=== PATIENT | male | born 1930 | race Caucasian/White ===

== ENCOUNTER → 2017-03-13 | Outpatient (CLI) | payer MEDICARE, OTHER ==
[~2017-03-13] MED LIST: "\\\"PREP SPRAY\\\"-TIN4 OZ"; CIPRO500 MG PO; COUMADIN ** IA3 MG PO; ENTRESTO 24 MG1 EACH PO; FEOSOL325 MG PO; FLAGYL500 MG PO; FLOMAX0.4 MG PO; JANUVIA50 MG PO; LASIX40 MG PO; MAG-OX-400(241400 MG PO; NEURONTIN100 MG PO; PROTONIX40 MG PO; VITAMIN D35000 UNI1 PO; ZYLOPRIM300 MG PO
== END | disposition disaster alternative care site (69) ==
LOC: LCNC 11:08
DX: Z95.2 Presence of prosthetic heart valve (principal)

== ENCOUNTER 2017-05-08 15:30 | Inpatient (IN) | payer MEDICARE, OTHER ==
[~2017-05-08] VITALS: Ht 165.6 cm; Wt 76.7 kg
--- NOTE | ~2017-05-08 | HP ---
PATIENT'S NAME: EDWIN [facility] AGE: 86 Y [address] ROOM: [address] [place], [place] [address] [place] [facility] [place]: [place]/2017 History & Physical DISCHARGE DATE: FAMILY PHYSICIAN: Darryl Ricardo MD ATTENDING PHYSICIAN: Natividad Neri DATE OF SERVICE: CHIEF COMPLAINT: Left-sided low back pain. HISTORY OF PRESENT ILLNESS: The patient is an 86-year-old male who presented to the clinic today with his . He reports he has been having low back pain for many years. It has been worse for the last 3-4 days. Describes it as moderate and nonradiating. No specific injury or event that precipitated it. While he was in the clinic, it was noted that he had difficulty getting up and down from the chair and was using a walker. His states that he had been more weak and unsteady in the last 3-4 days as well. He has had some occasional diarrhea. Reports a history of diverticulitis and had blood in his stool at that time. Denies any current blood in his stool. Denies any fevers, but admits he does have some chills. Denies any nausea or vomiting. Does admit to feeling weak and unsteady. In November, he had blood work done. His hemoglobin was low at 10.7, vitamin D 21, BUN 49, creatinine 2.09, GFR 32, and alkaline phosphatase 230. He is on Coumadin, which is managed by Dr. Finn. They report his INR was 4.2 on Thursday. His normal dose is 3 mg 4 days a week and 1.5 mg 3 days a week. They held his dose on Thursday, but otherwise told to resume his normal dose starting Thursday. He does have a history of x-ray of the lumbar spine in 2014 that showed significant arthritic changes and bony fusion at L4-L5. PAST MEDICAL HISTORY: 1. Anemia of chronic disease. 2. Aortic valve replacement. 3. Chronic ischemic heart disease. 4. CKD stage 3 to 4. 5. Gout. 6. Hyperlipidemia, prison use of anticoagulation. 7. Nocturnal hypoxemia, uses 2 L of oxygen per nasal cannula. 8. Paroxysmal atrial fibrillation. 9. 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 PATIENT'S NAME: EDWIN [facility] AGE: 86 Y [address] ROOM: [address] [place], [place] [address] [place] [facility] [place]: [place]/2017 History & Physical DISCHARGE DATE: FAMILY PHYSICIAN: Darryl Ricardo MD ATTENDING PHYSICIAN: Natividad Neri 10. 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 11. Vitamin D deficiency. PAST SURGICAL HISTORY: Bilateral cataract surgery, carpal tunnel release, cholecystectomy in 2006 with a history of gallstone pancreatitis, CABG in August 2004, hernia repair, pacemaker defibrillator in 2007 with an upgrade to BiV-ICD in February of 2008. MEDICATIONS: 1. Allopurinol 300 mg daily. 2. Entresto 24-26 one p.o. b.i.d. 3. Gabapentin 200 mg daily. 4. Januvia 50 mg at bedtime. 5. Magnesium oxide 400 mg 2 tablets daily. 6. Pantoprazole 40 mg b.i.d. 7. Tamsulosin 0.4 mg daily. 8. Vitamin D2 50,000 units twice a week. 9. Coumadin 3 mg 4 days a week and 1.5 mg 3 days a week. ALLERGIES: NONE. FAMILY HISTORY: Type 2 diabetes in his father and heart disease in his mother and sister. SOCIAL HISTORY: He lives at home with his , Kyleigh. He is retired. Nonsmoker. Rare alcohol use. REVIEW OF SYSTEMS: He admits to fatigue and chills. Denies fever. Denies chest pain. Denies shortness of breath or cough. He does admit to left lower quadrant abdominal pain. Denies nausea, vomiting, or blood in his stool. Denies any urinary symptoms. Does admit to weakness. Notes left-sided low back pain. Denies anxiety or depression. PHYSICAL EXAMINATION: VITAL SIGNS: Blood pressure 122/56, heart rate 63, respiratory rate 18, temperature 97.6, weight 172 pounds, height 5 feet 5 inches, O2 saturation 98% on room air. GENERAL: He is awake, alert, and oriented. No signs of distress. He did require one person assist, as well as use of his walker for ambulation. HEENT: Head is normocephalic. Eyes: Conjunctivae are clear. Ears: Both TMs are visualized and there is a small pustule on the inside of the left pinna that has some purulent drainage. Wound culture is obtained. The pinna PATIENT'S NAME: EDWIN [facility] AGE: 86 Y [address] ROOM: [address] [place], [place] [address] [place] [facility] [place]: [place]/2017 History & Physical DISCHARGE DATE: FAMILY PHYSICIAN: Darryl Ricardo MD ATTENDING PHYSICIAN: Natividad Neri itself has no redness, swelling, or signs of infection otherwise. Both TMs are visualized and normal in appearance. Nares are patent without rhinorrhea. Mucosa is within normal limits. No intranasal lesions noted. Mouth: Mucous membranes are moist. NECK: Supple. No lymphadenopathy. HEART: Regular rate, without murmur, he does have a click of an aortic valve noted. LUNGS: Clear to auscultation throughout. No crackles or wheezing. ABDOMEN: Soft, mildly tender to palpation in the left lower quadrant, normal tone. No guarding, no rebound tenderness. No masses palpated. No hepatosplenomegaly noted. MUSCULOSKELETAL: He is tender to palpation over the lumbar spinous processes. He is also tender over the left SI joint. No bruising, redness, or swelling noted. LABORATORY DATA: PT 38.3 with INR of 3.4. UA shows 30 mg/dL of protein and greater than 8 EU/dL of urobilinogen, 5-10 wbc's, and otherwise negative. Urine culture is pending. WBC elevated at 12.1 with hemoglobin 9.1, platelets 254, 88% segs. Sodium 137, potassium 5.2, chloride 108, bicarb 22, blood sugar 151, BUN 33, creatinine 1.82. GFR 37.7. ASSESSMENT: 1. Anemia. Hemoglobin was 10.7 in November and down to 9.1 today. In his chart, he has indicated both anemia of chronic disease and iron- deficiency anemia. He will be transfused 1 unit PRBC and premedicated with Tylenol and Benadryl. Transfusing due to his history of heart disease, chronic kidney disease, and his symptom of weakness. 2. Chronic kidney disease stage 3-4. His numbers today are stable with his GFR today, actually a bit higher than it was in November. 3. Chronic use of Coumadin. His normal dose is 3 mg 4 days a week and 1.5 mg 4 days a week. His INR was elevated at 4.2 on Thursday. His dose on Thursday was held and then he resumed his normal regimen. His INR today is within acceptable range of 3.4. 4. Left-sided low back pain. Hard to say if this is musculoskeletal or due to diverticulitis. 5. Left lower quadrant pain and elevated WBC. CT scan of the abdomen and pelvis done with oral contrast indicates diverticulitis. He has been started on IV Cipro and Flagyl. 6. Left ear pustule. Wound culture obtained in the clinic. No signs of surrounding cellulitis. 7. Elevated alkaline phosphatase. 215 today, but was 230 in November. 8. Hyperkalemia with potassium 5.2 in the clinic. EKG done on the floor. We will recheck potassium in the morning. He is not on any potassium replacement. He does have reduced kidney function, but it is actually a PATIENT'S NAME: EDWIN [facility] AGE: 86 Y [address] ROOM: [place] [address] [place] [facility] [place]: [place]/2017 History & Physical DISCHARGE DATE: FAMILY PHYSICIAN: Darryl Ricardo MD ATTENDING PHYSICIAN: Natividad Neri bit better today than his normal. We will monitor his potassium closely. MD LISA BARNES/modl /[id number] D: T: [id number] HISTORY & PHYSICAL
[~2017-05-08 15:30] MED LIST changes: -CIPRO500 MG PO; -ENTRESTO 24 MG1 EACH PO; -FEOSOL325 MG PO; -FLAGYL500 MG PO; -NEURONTIN100 MG PO
[2017-05-08] MEDS ORDERED: NEURONTIN100 MG PO (19:11)
[2017-05-08] MEDS ORDERED: ENTRESTO 24 MG1 EACH PO (19:12)
[2017-05-08 22:01] LABS: INR - (THERAPEUTIC) 2.87 (0.92-1.07); PROTIME 30.5 SECONDS (9.8-11.4)
--- NOTE | 2017-05-09 03:53 | NUR ---
VSS HYPERTENSIVE. AAOX3. AMBULATES WITH 1A WALKER. IV S/L TO LEFT WRIST GOOD BLOOD RETURN. IV TO LEFT ANTERIOR FOREARM S/L WITH GOOD BLOOD RETURN. 1 UNIT PRBC TRANSFUSED THROUGHOUT THE NIGHT AND INTERMITTENT ANTIBIOTICS. CT SCAN REVEALED DIVERTICULITIS PER DR. SOUSA. EDEMA PRESENT IN LOWER BILATERAL EXTREMETIES. ACCU CHECK ACHS WITH NO INSULIN SLIDING SCALE. LOWER BACK PAIN WITH SOME ABDOMINAL DISCOMFORT.
[2017-05-09 05:16] LABS: BASOPHIL # 0.1 K/uL (0.0-0.2); BASOPHIL % 0.6 %; EOSINOPHIL # 0.2 K/uL (0.0-0.5); EOSINOPHIL % 2.8 %; HEMATOCRIT 28.4 % (33.0-50.0); HEMOGLOBIN 9.4 g/dL (11.0-16.0); IMMATURE GRANULOCYTE % 0.5 %; LYMPHOCYTE # 1.1 K/uL (0.8-4.0); LYMPHOCYTE % 13.1 %; MCH 32.1 pg (27.0-34.0); MCHC 33.1 gm/dL (32.0-36.5); MCV 96.9 fl (83.0-98.0); MONOCYTE # 0.5 K/uL (0.0-1.0); MONOCYTE % 5.9 %; MPV 10.5 fl (9.4-12.4); NEUTROPHIL # (ANC) 6.2 K/uL (1.4-9.0); NEUTROPHIL % 77.1 %; NRBC % 0 /100WBC (0-0.00); PLATELET COUNT 246 K/uL (150-450); RBC 2.93 M/uL (3.50-5.50); RDW-CV 15.8 % (11.9-14.6)
[2017-05-09 05:32] LABS: ALBUMIN 2.6 gm/dL (3.5-5.0); ANION GAP 11.6 (10.0-19.0); CALCIUM 9.2 mg/dL (8.5-10.5); CREATININE 1.7 mg/dL (0.6-1.3); POTASSIUM 4.6 mMol/L (3.7-5.1); TOTAL BILIRUBIN 0.9 mg/dL (0.0-1.5); TOTAL PROTEIN 6.6 g/dL (6.0-8.4)
--- NOTE | 2017-05-09 16:45 | NUR ---
D: PATIENT VITAL SIGNS STABLE PATIENT AFEBRILE. PATIENT HAS BEEN UP TO BATHROOM WITH ONE ASSISTANCE. PATIENT HAS HAD THREE FORMED BROWN BM TODAY, 1080 IN ORALLY WITH 4 VOIDS. PATIENT CONTINUES TO REPORT THAT HE FEELS WEAK BUT BETTER THAN PREVIOUS DAYS.
--- NOTE | 2017-05-10 04:14 | NUR ---
VSS.AFEBRILE. UP WITH 1 ASSIST WALKER AND GAIT BELT. IV TO LEFT WRIST WITH NO BLOOD RETURN. INTERMITTENT IV ANTIBIOTICS. APPETITE DECREASED. ACCU CHECK ACHS WITH MILD SLIDING INSULIN SCALE. NO INSULIN GIVEN. COOPERATIVE WITH CARES, NEEDS ENCOURAGEMENT TO EAT. SLEPT WELL THROUGHOUT THE NIGHT.
[2017-05-10 05:22] LABS: BASOPHIL # 0.1 K/uL (0.0-0.2); BASOPHIL % 0.5 %; EOSINOPHIL # 0.1 K/uL (0.0-0.5); EOSINOPHIL % 1.3 %; HEMATOCRIT 29.1 % (33.0-50.0); HEMOGLOBIN 9.9 g/dL (11.0-16.0); IMMATURE GRANULOCYTE % 0.4 %; LYMPHOCYTE # 0.9 K/uL (0.8-4.0); LYMPHOCYTE % 9.4 %; MCH 32.6 pg (27.0-34.0); MCV 95.7 fl (83.0-98.0); MONOCYTE # 0.7 K/uL (0.0-1.0); MONOCYTE % 7.2 %; MPV 10.4 fl (9.4-12.4); NEUTROPHIL # (ANC) 7.7 K/uL (1.4-9.0); NEUTROPHIL % 81.2 %; NRBC % 0 /100WBC (0-0.00); PLATELET COUNT 268 K/uL (150-450); RBC 3.04 M/uL (3.50-5.50); RDW-CV 15.7 % (11.9-14.6); WBC 9.4 K/uL (4.0-11.0)
[2017-05-10 05:40] LABS: ALBUMIN 2.7 gm/dL (3.5-5.0); ANION GAP 12.8 (10.0-19.0); CALCIUM 9.1 mg/dL (8.5-10.5); CREATININE 1.8 mg/dL (0.6-1.3); POTASSIUM 4.8 mMol/L (3.7-5.1); TOTAL BILIRUBIN 0.8 mg/dL (0.0-1.5); TOTAL PROTEIN 6.8 g/dL (6.0-8.4)
--- NOTE | 2017-05-10 15:46 | NUR ---
D: PATIENT VITAL SIGNS STABLE AND PATIENT AFEBRILE. PATIENT CONFUSED THIS AM BUT ABLE TO REORIET; MUCH IMPROVED WHEN HIS ARRIVED. PATIENT HAS BEEN UP TO THE BATHROOM X 3 WITH 1-STAND-BY ASSISTANCE AND WHEELED WALKER. PATIENT HAD A LATE BREAKFAST. PATIENT DENIES ABDOMINAL/BACK PAIN TODAY
--- NOTE | 2017-05-11 07:34 | NUR ---
VSS AFEBRILE. UP WITH ONE ASSIST WALKER. IV TO LEFT WRIST SALINE LOCK FLUSHES WELL WITH NO BLOOD RETURN. INTERMITTENT ANTIBIOTICS. ACCU CHECK ACHS WITH MILD INSULIN SLIDING SCALE. FORGETFUL TO PLACE AND TIME. RESTED WELL THROUGHOUT THE NIGHT. POSSIBLE HOME TODAY.
--- NOTE | 2017-05-11 12:00 | NUR ---
SPOKE TO PATIENT AND HIS SPOUSE AT THE BEDSIDE. THEIR DAUGHTER IS AT THE BEDSIDE WELL. INTRODUCED CM AND OUR ROLE. PATIENT LIVES IN AN APARTMENT WITH HIS SPOUSE AND THEIR DAUGHTER CHECKS ON THEM OFTEN. PATIENT'S SPOUSE IS READY FOR EDWIN TO BE DISCHARGED, IS THE DAUGHTER THEY DENIE ANY DISCHARGE NEEDS THEY FEEL THAT EDWIN WILL DO BETTER ONCE HE IS BACK AT HOME. PRESENTED TO THEM THE OPTION OF HHC BUT THEY DECLINE IT AT THIS TIME. I GAVE THEM INFO ON [employer] AND THEY FEEL THIS MAY BE A SERVICE THAT THEY WOULD BENEFIT FROM AND THEIR DAUGHTER IS GOING TO CONTACT THEM ONE THEY GET HOME.
[2017-05-11] MEDS ORDERED: FEOSOL325 MG PO (12:35)
[2017-05-11] MEDS ORDERED: CIPRO500 MG PO (12:36)
[2017-05-11] MEDS ORDERED: FLAGYL500 MG PO (12:36)
--- NOTE | 2017-05-11 13:00 | NUR ---
DISCHARGE: D: ORDERS RECEIVED FOR THE PATIENT TO BE DISCHARGED TO HOME TODAY WITH FAMILY. I: DISMISSAL INSTRUCTIONS WRE PREPARED AND REVIEWED WITH THE PATIENT AND HIS FAMILY AT BEDSIDE. THE FOLLOWING INFORMATION WAS DISCUCCSED INCLUDING [employer] TEACHING SHEETS PROVIDED: DISCHARGE INSTRUCTIONS FOR DIVERTICULITIS, UNDERSTANDING DIVERTICULOSIS AND DIVERTICULITITS, LOW FIBER DIET, FLAGYL AND CIPRO. R: THE PATIENT AND HIS FAMILY BOTH VERBALIZED UNDERSTANDING OF THE DISMISSAL EDUCATION AT THE TIME OF TEACHING WITH NO FURTHER QUESTIONS. P: THE ABOVE INFORMATION WAS SHARED WITH THE PRIMARY NURSE AND THE CHARGE NURSE THAT THE PATIENT DISMISSAL EDUCATION WAS COMPELTED. THE PATIENT IS READY FOR DISCHARGE TO THE [facility] VIA WHEEL CHAIR BY NURSING STAFF.
== END 2017-05-11 13:10 | disposition disaster alternative care site (69) | DRG 392 ==
LOC: GMSU 15:51
PROVIDERS: Family Medicine; ADMIT Family Medicine
PROC: 30233N1 Transfusion of Nonautologous Red Blood Cells into Peripheral Vein, Percutaneous Approach (ICD-10-PCS; principal; 2017-05-08)
DX: K57.92 Diverticulitis of intestine, part unspecified, without perforation or abscess without bleeding (principal); N18.4 Chronic kidney disease, stage 4 (severe); E11.22 Type 2 diabetes mellitus with diabetic chronic kidney disease; G47.34 Idiopathic sleep related nonobstructive alveolar hypoventilation; I48.0 Paroxysmal atrial fibrillation; D63.8 Anemia in other chronic diseases classified elsewhere; E87.5 Hyperkalemia; D50.9 Iron deficiency anemia, unspecified
CPT/HCPCS: J0744; J7050; P9016

== ENCOUNTER → 2017-05-08 | Outpatient (CLI) | payer MEDICARE, OTHER | LOC: LKCL 15:33 | DX: M54.9 Dorsalgia, unspecified (principal) ==